=== PATIENT | male | born 2000 | race African-American/Black ===

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

== ENCOUNTER 2020-01-14 08:22 | Emergency (ER) | payer BC ==
[2020-01-14] MEDS ORDERED: Morphine 4 MG/ML Syringe IVPUSH ONE (08:48)
[2020-01-14] MEDS ORDERED: Lactated Ringers 1,000 ML IV ONE (09:03)
[2020-01-14 09:30] LABS: ANION GAP 16.1 mmol/L (10-20); CHLORIDE,CL 102 mmol/L (98-107); SODIUM,NA 138 mmol/L (136-145)
--- NOTE | 2020-01-14 09:43 | EDM.PDOC ---
ED HPI GENERAL MEDICAL PROBLEM - General Chief Complaint: Genitourinary Problem Stated Complaint: ER Time Seen by Provider: 01/14/20 08:40 Source of Information: Reports: Patient, RN Notes Reviewed History Limitations: Reports: Intoxication (Pt smells highly of marijuana and admits to being "quite HIGH" during exam. ) - History of Present Illness INITIAL COMMENTS - FREE TEXT/NARRATIVE: Patient comes emergency department today from home by ambulance with concerns of pain in his testicles and his penis. This patient this morning got up from bed and went outside in the 15 degree temperature he urinated outside for about 30 seconds and then suddenly when he came inside he had pain to the tip of his penis as well as his left testicle. There was no fall trauma or injury to the area. He tried to take a warm shower and the sensation and pain did not resolve. He is unable to obtain an erection and he is quite concerned about it. Although the patient denies any recreational drug use on exam with the nursing staff when I enter the room and is quite obvious a very strong smell of marijuana and a very demeanor almost somewhat paranoid concerning for some type of altered status state is quite obvious to myself the patient eventually admits that he got up this morning smoked marijuana and got "extremely high" prior to the development of his symptoms in his groin. He has had no penis discharge. He has had no trauma. He has had no penis drainage. No hematuria dysuria or urinary frequency. No fever no chills. NO COVID exposure no COVID symptoms. Penis Pain Score (Numeric/FACES): 5 - Related Data Allergies Allergy/AdvReac Type Severity Reaction Status Date / Time Penicillins Allergy Cannot Verified 01/14/20 08:34 Remember Home Meds: Home Meds . [No Known Home Meds] 10/11/18 [History] Past Medical History - Past Health History Medical/Surgical History: Denies Medical/Surgical History Social & Family History - Tobacco Use Tobacco Use Status *Q: Never Tobacco User ED ROS GENERAL - Review of Systems Review Of Systems: Comprehensive ROS is negative, except as noted in HPI. ED EXAM, RENAL/ - Physical Exam Exam: See Below Exam Limited By: Intoxication (Patient appears to be under the influence of some substance and assuming that it is marijuana as he smells quite highly of the substance.) General Appearance: Alert, WD/WN, Anxious Eye Exam: Bilateral Eye: EOMI, PERRL (glazed over appearance to bilateraly injected scleral eyes. ) Ears: Normal External Exam Nose: Normal Inspection Throat/Mouth: Normal Inspection Head: Atraumatic Neck: Normal Inspection Respiratory/Chest: No Respiratory Distress, Lungs Clear Cardiovascular: Normal Peripheral Pulses, Regular Rate, Rhythm GI/Abdominal: Normal Bowel Sounds, Soft, Non-Tender (Male) Exam: No Hernia, Circumcised, Scrotum Tenderness (L) (The left testicle is slightly larger than the right. The tenderness is primarily on the testicle itself. Epididymis is not tender. There is no fluid in the scrotum.), Testicular Tenderness (L). No: Cremasteric Reflex (is absent bilaterally. ), Hernia, Inguinal Lymphadenopathy, Penile Lesions, Rash, Scrotal Swelling, Scrotum Tenderness (R), Testicular Mass, Testicular Tenderness (R), Urethral Discharge Rectal (Males) Exam: Deferred Extremities: Normal Inspection, Normal Range of Motion Neurological: Alert, Oriented, Normal Cognition, No Motor/Sensory Deficits Psychiatric: Flat Affect (somewhat paranoid. ) Course - Vital Signs Last Recorded V/S: Last Vital Signs Temp 97.2 F 01/14/20 08:22 Pulse 110 H 01/14/20 08:22 Resp 18 01/14/20 08:22 BP 142/81 H 01/14/20 08:22 Pulse Ox 98 01/14/20 08:22 - Orders/Labs/Meds Orders: Active Orders 24 hr Category Date Time Status CHLAMYDIA AND GONORRHEA BY TMA Stat Lab 01/14/20 09:40 Received Labs: Laboratory Tests 01/14/20 01/14/20 01/14/20 Range/Units 09:01 09:01 09:01 WBC 10.4 H (4.0-10.0) x10^3/uL RBC 5.36 (4.5-6.0) x10^6/uL Hgb 14.4 (14.0-18.0) g/dL Hct 42.5 (40.0-52.0) % MCV 79.3 (78.0-93.0) fL MCH 26.9 (26.0-32.0) pg MCHC 33.9 (32.0-36.0) g/dL RDW Coeff of Boy 14.0 (10.0-15.0) % Plt Count 263 (130-400) x10^3/uL Neut % (Auto) 76.2 (50.0-80.0) % Lymph % (Auto) 16.9 L (25.0-50.0) % [place] % (Auto) 6.2 (2.0-11.0) % Eos % (Auto) 0.3 (0.0-4.0) % Baso % (Auto) 0.4 (0.2-1.2) % Sodium 138 (136-145) mmol/L Potassium 3.1 L (3.5-5.1) mmol/L Chloride 102 (98-107) mmol/L Carbon Dioxide 23 (21-32) mmol/L Anion Gap 16.1 (10-20) mmol/L BUN 14 (7-18) mg/dL Creatinine 1.0 (0.70-1.30) mg/dL Est Cr Clr Drug Dosing TNP Estimated GFR (MDRD) > 60 Glucose 186 H (74-106) mg/dL Lactic Acid 2.5 H* (0.4-2.0) mmol/L Calcium 9.2 (8.5-10.1) mg/dL Corrected Calcium 9.04 (8.5-10.1) mg/dL Total Bilirubin 1.1 H (0.2-1.0) mg/dL AST 22 (15-37) U/L ALT 34 (16-63) U/L Alkaline Phosphatase 60 (46-116) U/L C-Reactive Protein 0.5 (<=0.9) mg/dL Total Protein 8.0 (6.4-8.2) g/dL Albumin 4.2 (3.4-5.0) g/dL Globulin 3.8 Albumin/Globulin Ratio 1.11 Urine Color (YELLOW) Urine Appearance (CLEAR) Urine pH (5.0-8.0) Ur Specific Enc[place] Urine Protein (NEGATIVE) mg/dL Urine Glucose (UA) (NEGATIVE) mg/dL Urine Ketones (NEGATIVE) mg/dL Urine Occult Blood (NEGATIVE) Urine Nitrite (NEGATIVE) Urine Bilirubin (NEGATIVE) Urine Urobilinogen (0.2) EU/dL Ur Leukocyte Esterase (NEGATIVE) Urine Opiates Screen (NEAGTIVE) Ur Buprenorphine Scrn (NEGATIVE) Ur Oxycodone Screen (NEGATIVE) Ur EDDP (Meth Metab) (NEGATIVE) Urine Methadone Screen (NEGATIVE) Ur Barbiturates Screen (NEGATIVE) Ur Tricyclics Screen (NEGATIVE) Ur Phencyclidine Scrn (NEGATIVE) Ur Amphetamine Screen (NEGATIVE) U Methamphetamines Scrn (NEGATIVE) Urine MDMA Screen (NEGATIVE) U Benzodiazepines Scrn (NEGATIVE) U Cocaine Metab Screen (NEGATIVE) U Marijuana (THC) Screen (NEGATIVE) 01/14/20 01/14/20 Range/Units 09:40 09:40 WBC (4.0-10.0) x10^3/uL RBC (4.5-6.0) x10^6/uL Hgb (14.0-18.0) g/dL Hct (40.0-52.0) % MCV (78.0-93.0) fL MCH (26.0-32.0) pg MCHC (32.0-36.0) g/dL RDW Coeff of Boy (10.0-15.0) % Plt Count (130-400) x10^3/uL Neut % (Auto) (50.0-80.0) % Lymph % (Auto) (25.0-50.0) % [place] % (Auto) (2.0-11.0) % Eos % (Auto) (0.0-4.0) % Baso % (Auto) (0.2-1.2) % Sodium (136-145) mmol/L Potassium (3.5-5.1) mmol/L Chloride (98-107) mmol/L Carbon Dioxide (21-32) mmol/L Anion Gap (10-20) mmol/L BUN (7-18) mg/dL Creatinine (0.70-1.30) mg/dL Est Cr Clr Drug Dosing Estimated GFR (MDRD) Glucose (74-106) mg/dL Lactic Acid (0.4-2.0) mmol/L Calcium (8.5-10.1) mg/dL Corrected Calcium (8.5-10.1) mg/dL Total Bilirubin (0.2-1.0) mg/dL AST (15-37) U/L ALT (16-63) U/L Alkaline Phosphatase (46-116) U/L C-Reactive Protein (<=0.9) mg/dL Total Protein (6.4-8.2) g/dL Albumin (3.4-5.0) g/dL Globulin Albumin/Globulin Ratio Urine Color Yellow (YELLOW) Urine Appearance Clear (CLEAR) Urine pH 5.5 (5.0-8.0) Ur Specific Enc[place] >=1.030 Urine Protein Negative (NEGATIVE) mg/dL Urine Glucose (UA) Negative (NEGATIVE) mg/dL Urine Ketones Negative (NEGATIVE) mg/dL Urine Occult Blood Negative (NEGATIVE) Urine Nitrite Negative (NEGATIVE) Urine Bilirubin Small H (NEGATIVE) Urine Urobilinogen 0.2 (0.2) EU/dL Ur Leukocyte Esterase Negative (NEGATIVE) Urine Opiates Screen Negative (NEAGTIVE) Ur Buprenorphine Scrn Negative (NEGATIVE) Ur Oxycodone Screen Negative (NEGATIVE) Ur EDDP (Meth Metab) Negative (NEGATIVE) Urine Methadone Screen Negative (NEGATIVE) Ur Barbiturates Screen Negative (NEGATIVE) Ur Tricyclics Screen Negative (NEGATIVE) Ur Phencyclidine Scrn Negative (NEGATIVE) Ur Amphetamine Screen Negative (NEGATIVE) U Methamphetamines Scrn Negative (NEGATIVE) Urine MDMA Screen Negative (NEGATIVE) U Benzodiazepines Scrn Negative (NEGATIVE) U Cocaine Metab Screen Negative (NEGATIVE) U Marijuana (THC) Screen Positive H (NEGATIVE) Meds: Medications Discontinued Medications Generic Name Dose Route Start Last Admin Trade Name Freq PRN Reason Stop Dose Admin Lactated Ringer's 1,000 mls @ 999 mls/hr 01/14/20 09:03 01/14/20 09:11 Ringers, Lactated IV 01/14/20 10:03 999 mls/hr ONETIME ONE Administration Morphine Sulfate 4 mg 01/14/20 08:48 Morphine IVPUSH 01/14/20 08:49 ONETIME ONE - Re-Assessments/Exams Free Text/Narrative Re-Assessment/Exam: 01/14/20 Initially the patient only want something for pain. An IV was established labs were drawn he was going to be given morphine for pain although he does not want anything for pain now. He just wants to know what is wrong with the scrotum. Starts to become somewhat paranoid and wants to leave and is unsure of why he came to the ER. We were able to redirect him. Urinalysis is noninfectious appearing GC chlamydia pending. Laboratory evaluation with a mild elevation of his lactic. I really unconcerned for any type of infectious process. His epididymis is not overtly tender he was more tender on the left testicle and he has a loss of the cremasteric reflex on the left scrotum. Not have ultrasound available. I initially spoke with [facility] and they were unable to do the ultrasound until later this afternoon. I eventually called and spoke with Dr. Salinas at [facility] in [place]. HPI ER COURSE findings and concerns were relayed to him of the concerns of a testicle torsion. He accepted the patient in transfer. The patient was informed of my concern for the possibility of a testicle torsion. We have to send him to [place] to get a ultrasound to ensure that he does not have this. He did have a family member come and get him from the emergency department and they will take him to [facility] in [place]. I reminded him multiple times verbally as well as in written instructions not to eat anything or get the munchies on the way to [place] as he may need surgery if this is a testicle torsion. Transfer instructions and guidance were explained the patient is comfortable with this plan and his questions were answered. Departure - Departure Time of Disposition: 09:34 Disposition: DC/Tfer to [facility] 02 Clinical Impression: Testicular pain, left - Discharge Information Referrals: PCP,None [Primary Care Provider] - Forms: ED Department Discharge, Interfacility Transfer EMTALA Additional Instructions: Go from the ED at [facility] Directly to the ED at [facility] in [place] to the new facility on [address]. DO NOT EAT OR DRINK ANYTHING DURING the drive to [place]. You will be evaluated in the ED by a ER MD and possible ultrasound. Sepsis Event Note (ED) - Evaluation Sepsis Screening Result: No Definite Risk - Focused Exam Vital Signs: Vital Signs Temp Pulse Resp BP Pulse Ox 01/14/20 08:22 97.2 F 110 H 18 142/81 H 98 - My Orders Last 24 Hours: My Active Orders 01/14/20 09:40 CHLAMYDIA AND GONORRHEA BY [facility] Stat - Assessment/Plan Last 24 Hours: My Active Orders 01/14/20 09:40 CHLAMYDIA AND GONORRHEA BY TMA Stat
[2020-01-14 10:01] LABS: BARBITURATE SCREEN,URINE NEGATIVE (NEGATIVE); BENZODIAZEPINES SCREEN,URINE NEGATIVE (NEGATIVE); EDDP,URINE SCREEN NEGATIVE (NEGATIVE); METHAMPHETAMINE SCREEN, URINE NEGATIVE (NEGATIVE); TCA SCREEN,URINE NEGATIVE (NEGATIVE); THC SCREEN,URINE 50 NG/ML POSITIVE (NEGATIVE)
[2020-01-15 12:06] LABS: C.TRACHOMATIS BY TMA Negative (Negative); N.GONORRHOEAE BY TMA Negative (Negative)
== END 2020-01-14 10:03 | disposition short-term general hospital (02) ==
LOC: VM.ED 08:22
DX: N50.812 Left testicular pain (principal); Z88.0 Allergy status to penicillin
CPT/HCPCS: 80053; 80305; 81003; 83605; 85025; 86140; 87491; 87591; 99284; 99285; J7120; 36415; J2270